=== PATIENT | female | born 1970 | race Caucasian/White ===

== ENCOUNTER 2020-07-08 14:32 | Observation (INO) ==
--- NOTE | 2020-07-08 15:09 | Emergency Department Note ---
Epistaxis HPI <Aravind Pinto PA-C - Last Filed: 07/08/20 22:00> General Chief complaint: Epistaxis Stated complaint: nose bleed Time Seen by Provider: 07/08/20 15:06 Source: patient Mode of arrival: ambulatory Limitations: no limitations History of Present Illness HPI Narrative: Narrative: 50-year-old female presents emergency department with complaints of epistaxis. She was first seen at [facility] in [place]. She has had several bloody noses this week but today it just would not stop. She first had a Rhino Rocket in the left nare which then caused bloody, on the right. Another Rhino Rocket was placed by the physician. At this point the physician in [place] contacted Dr. Kp Thapa who wanted the patient to come to [place] for evaluation. I spoke with him on the phone and he said that if we cannot get it stopped with posterior Johnson then to give him a call. Patient states that she does drink about 6 to 7 days a week of wine. She denies having any other medical conditions. Related Data Home Medications Medication Instructions Recorded Confirmed levothyroxine 112 mcg capsule 112 mcg PO QDAY 02/10/19 07/08/20 Allergies Allergy/AdvReac Type Severity Reaction Status Date / Time Penicillins Allergy Intermediate Palpitation Verified 07/08/20 23:41 s Review of Systems <Aravind Pinto PA-C - Last Filed: 07/08/20 22:00> ROS ROS Narrative: Narrative: PFSH <Aravind Pinto PA-C - Last Filed: 07/08/20 22:00> Narrative Patient History Narrative: Narrative: Medical/Surgical/Family History All Active Problems (Updated 07/08/20 @ 22:00 by Aravind Pinto PA-C) Epistaxis (Acute) Nausea (Acute) Acute cystitis (Acute) Social History Smoking Status: Current every day smoker Alcohol Intake Frequency: a few times a week Substance Use: does not use Exam <Aravind Pinto PA-C - Last Filed: 07/08/20 22:00> Narrative Narrative: Narrative: General Limitations: no limitations Course <Aravind Pinot PA-C - Last Filed: 07/08/20 22:00> Vital Signs Vital signs: Vital Signs Temperature 98.3 F 07/08/20 14:34 Pulse Rate 120 H 07/08/20 14:34 Respiratory Rate 18 07/08/20 14:34 Blood Pressure 118/70 07/08/20 14:34 Pulse Oximetry (%) 100 07/08/20 14:34 Temperature 98.4 F 07/09/20 07:39 Pulse Rate 114 H 07/09/20 07:39 Respiratory Rate 20 07/09/20 07:39 Blood Pressure 119/69 07/09/20 07:39 Pulse Oximetry (%) 97 07/09/20 07:39 <Roberto Carlos Gonsalez MD - Last Filed: 07/09/20 08:05> Vital Signs Vital signs: Vital Signs Temperature 98.3 F 07/08/20 14:34 Pulse Rate 120 H 07/08/20 14:34 Respiratory Rate 18 07/08/20 14:34 Blood Pressure 118/70 07/08/20 14:34 Pulse Oximetry (%) 100 07/08/20 14:34 Temperature 98.4 F 07/09/20 07:39 Pulse Rate 114 H 07/09/20 07:39 Respiratory Rate 07/09/20 07:39 Blood Pressure 119/69 07/09/20 07:39 Pulse Oximetry (%) 97 07/09/20 07:39 Procedures <Aravind Pinto PA-C - Last Filed: 07/08/20 22:00> Epistaxis Control Nostril: left Direct Inspection: unable to visualize Clots Removed by: blowing nose Device Inserted: johnson catheter and other (14 Ivorian Johnson catheter was inserted into the left nare and was visualized at the uvula. 4 cc of sterile normal saline was used to inflate the balloon. It was pulled up to occlude the posterior bleed. 5.5 anterior rhino rocket was placed in left nare. bleeding controlled. patient tolerated well. ) MDM <Aravind Pinto PA-C - Last Filed: 07/08/20 22:00> [facility] Narrative Medical decision making narrative: Narrative: I contacted Dr. Kp Thapa and he said to put a 14 Ivorian in left nare and then a Rhino Rocket in the front for packing to control the bleed. I did this successfully. Patient has been bleeding for the last 6 hours. She is tachycardic and has lost a good amount of blood. [id number] hematocrit was normal but she has not replenished any fluids yet. I have given her 1 L of normal saline along with Zofran for nausea. I feel at this point that I would like to admit the patient for observation to make sure that the posterior pack stays in place as well as her getting hydrated along with a recheck of her H&H. Patient is open to this. I will talk with the hospitalist. Patient continue to bleed despite the posterior and anterior packing. Dr. Thapa was called and he agreed to come evaluate the patient. Upon evaluate the patient Dr. Thapa said that he needed to take the patient to the OR since that she was bleeding enough that he was unable to find a a single source and seem to be coming from multiple sources. Patient was discharged to outpatient surgery. Lab Data Result diagrams: 07/09/20 04:51 07/09/20 04:51 Labs: Lab Results 07/08/20 07/08/20 07/08/20 Range/Units 17:37 22:51 22:51 WBC 6.9 (4.5-11.0) K/mcL RBC 2.65 L (4.00-5.20) M/mcL Hgb 10.0 L (12.0-15.0) g/dL Hct 29.7 L (36.0-48.0) % POC Hct 36 (36-48) % MCV 112.1 H (80.0-100.0) fL MCH 37.7 H (26.0-34.0) pg MCHC 33.7 (31.0-36.0) g/dL RDW 14.1 (11.5-14.5) % Plt Count 108 L (140-440) K/mcL MPV 11.5 H (7.4-10.4) fL Neut % (Auto) 64.3 (38.0-78.0) % Lymph % (Auto) 19.7 (15.0-49.0) % [place] % (Auto) 12.5 H (1.0-12.0) % Eos % (Auto) 2.6 (0.0-7.0) % Baso % (Auto) 0.9 (0.0-2.0) % Lymph # (Auto) 1.36 L (1.50-4.80) K/mcL [place] # (Auto) 0.86 (0.10-0.90) K/mcL Eos # (Auto) 0.18 (0.00-0.70) K/mcL Baso # (Auto) 0.06 (0.00-0.20) K/mcL Absolute Neutrophils 4.44 (1.80-8.00) K/mcL PT 21.6 H (11.9-14.5) sec INR 1.8 H (0.9-1.1) POC Sodium 139 (133-145) mEq/L POC Potassium 4.1 (3.3-5.1) mEql/L POC Chloride 103 (96-108) mEq/L POC Total CO2 26 (22-30) mmol/L POC BUN 10 (6-20) mg/dL POC Creatinine 0.5 L (0.6-1.2) mg/dL POC Glucose 96 (70-105) mg/dL POC WB Ioniz Calcium 1.16 (1.16-1.32) mmEq/L <Roberto Carlos Gonsalez MD - Last Filed: 07/09/20 08:05> Lab Data Labs: Lab Results 07/08/20 07/08/20 07/08/20 Range/Units 17:37 22:51 22:51 WBC 6.9 (4.5-11.0) K/mcL RBC 2.65 L (4.00-5.20) M/mcL Hgb 10.0 L (12.0-15.0) g/dL Hct 29.7 L (36.0-48.0) % POC Hct 36 (36-48) % MCV 112.1 H (80.0-100.0) fL MCH 37.7 H (26.0-34.0) pg MCHC 33.7 (31.0-36.0) g/dL RDW 14.1 (11.5-14.5) % Plt Count 108 L (140-440) K/mcL MPV 11.5 H (7.4-10.4) fL Neut % (Auto) 64.3 (38.0-78.0) % Lymph % (Auto) 19.7 (15.0-49.0) % [place] % (Auto) 12.5 H (1.0-12.0) % Eos % (Auto) 2.6 (0.0-7.0) % Baso % (Auto) 0.9 (0.0-2.0) % Lymph # (Auto) 1.36 L (1.50-4.80) K/mcL [place] # (Auto) 0.86 (0.10-0.90) K/mcL Eos # (Auto) 0.18 (0.00-0.70) K/mcL Baso # (Auto) 0.06 (0.00-0.20) K/mcL Absolute Neutrophils 4.44 (1.80-8.00) K/mcL PT 21.6 H (11.9-14.5) sec INR 1.8 H (0.9-1.1) POC Sodium 139 (133-145) mEq/L POC Potassium 4.1 (3.3-5.1) mEql/L POC Chloride 103 (96-108) mEq/L POC Total CO2 26 (22-30) mmol/L POC BUN 10 (6-20) mg/dL POC Creatinine 0.5 L (0.6-1.2) mg/dL POC Glucose 96 (70-105) mg/dL POC WB Ioniz Calcium 1.16 (1.16-1.32) mmEq/L Discharge Plan Patient/Caregiver Discharge Instructions Pt seen by LOAN ASSOCIATE/PA only: Yes Clinical Impression: Epistaxis Activity: increase activity as tolerated Patient Disposition: Xfer Other Condition: Fair Discharge Date/Time: 07/08/20 21:20 Discharge Comment: in surg [id number]
[2020-07-08 17:53] LABS: POC Blood Urea Nitrogen 10 mg/dL (6-20); POC CO2 26 mmol/L (22-30); POC Calcium, Ionized 1.16 mmEq/L (1.16-1.32); POC Chloride 103 mEq/L (96-108); POC Creatinine 0.5 mg/dL (0.6-1.2); POC Glucose, Random 96 mg/dL (70-105); POC Hematocrit 36 % (36-48); POC Potassium 4.1 mEql/L (3.3-5.1); POC Sodium 139 mEq/L (133-145)
[2020-07-08] MEDS ORDERED: ONDANSETRON 4 MG/2 ML VIAL IV ONE (18:34)
[2020-07-08] MEDS ORDERED: SILVER NITRATE APPLICATOR STICK TOPICAL ONE (20:11)
--- NOTE | 2020-07-08 21:10 | Consultation ---
DATE OF CONSULTATION: 07/08/2020 REASON FOR CONSULTATION: Epistaxis. HISTORY OF PRESENT ILLNESS: The patient is a 50-year-old who was seen earlier in the day at an outlying emergency room with some epistaxis. She has had 4-5 episodes of bleeding this week that have all stopped spontaneously, but she bent over this morning while cleaning and had significant bleeding. She was unable to get it stopped with pressure and went to the outlying ER. There, she was packed bilaterally and monitored. She had continued bleeding and was transferred to the ER at [facility]. The provider here, removed the packing and placed a posterior Cooper pack as well as a small anterior Rhino Rocket. She continued to bleed, both posteriorly and anteriorly. She has no history of any bleeding disorders, but has had 5 days of some nosebleeds. She denies any heavy periods. She does admit to drinking alcohol daily and agrees that she does need to make a change in that habit. Aside from that, she is active and healthy. ALLERGIES: SHE HAS GOT A PENICILLIN ALLERGY and no other drug allergies aside from that. PAST MEDICAL HISTORY: Unremarkable. PAST SURGICAL HISTORY: She had a remote sinus surgery. SOCIAL HISTORY: Smoking, she smokes daily. Alcohol, she drinks daily. Drugs, she denies any illicit drug use. FAMILY HISTORY: Reviewed and no history of any bleeding disorders or early cardiac deaths. REVIEW OF SYSTEMS: Negative in the 12 systems aside from what was mentioned above. PHYSICAL EXAMINATION: From an exam standpoint, she was slightly tachycardic today at 1:22 in the room. Respirations were 20, BP was 130/90s. LABORATORY DATA: Showed a slightly low RBC and hematocrit with an elevated MCV consistent with her alcoholism. Her platelet counts were low at 111. ASSESSMENT AND PLAN: 1. Epistaxis. She has had multiple attempted packings by emergency physicians. I do not have the equipment in the ER to get a good visualization of it. Based on that and her amount of bleeding with her having anemia at 11:30 this morning, I discussed with her going back for some endoscopic control. We did discuss risk factors such as continued bleeding and even . She is going to stay the night observation post-procedure and hopefully we do not have any issues. Aside from that, once packing is placed, we will have her follow up in the upcoming week to remove that and we will monitor her tomorrow to make sure she is safe for discharge. I appreciate the consult. SP:man Job ID: [id number] Doc ID: [id number] Kp Thapa DO
[2020-07-08] MEDS ORDERED: TRANEXAMIC ACID 1,000 MG/10 ML VIAL IV ONE (21:30)
[2020-07-08] MEDS ORDERED: KETAMINE 50 MG/ML ML ONE (21:30)
[2020-07-08] MEDS ORDERED: PROPOFOL 200 MG/20 ML VIAL IV ONE (21:30)
[2020-07-08] MEDS ORDERED: DEXAMETHASONE 10 MG/ML VIAL ONE (21:30)
[2020-07-08] MEDS ORDERED: LIDOCAINE HCL/PF 100 MG/5 ML SYRINGE IV ONE (21:30)
[2020-07-08] MEDS ORDERED: SUCCINYLCHOLINE 20 MG/ML ML IV ONE (21:30)
[2020-07-08] MEDS ORDERED: fentaNYL 100 MCG/2 ML VIAL IV ONE (21:30)
[2020-07-08] MEDS ORDERED: ONDANSETRON 4 MG/2 ML VIAL ONE (21:30)
[2020-07-08] MEDS ORDERED: MIDAZOLAM 5 MG/5 ML VIAL ONE (21:30)
[2020-07-08] MEDS ORDERED: OXYMETAZOLINE 1 SPRAY BOTTLE NAS PRN ×2 (21:40→23:08)
[2020-07-08] MEDS ORDERED: LIDOCAINE W/EPI 1% 20 ML VIAL IJ ONE (21:53)
--- NOTE | 2020-07-08 22:37 | Internal Med History&Physical ---
HPI History of Present Illness Patient information: Note initiated : 07/08/20 at 10:30 pm Service Date, if different from initiated Date: [] Patient: Migdalia Alaniz a 50 y/o F admitted on for nose bleed. Chief Complaint: [] History of present illness: Ms. Alaniz is a 50 year old female with a history of hypothyroidism, alcohol use disorder admitted for persistent epistaxis from posterior bleed after failing multiple attempts at packings by ED providers. She then underwent procedural intervention with ENT in the OR and subsequently admitted for close observation. Constitutional: no fever, fatigue, or weight loss HENT: positive for nose bleed. Cardiovascular: no chest pain, no palpitations Respiratory: no cough or dyspnea Gastrointestinal: no abdominal pain, no nausea, vomiting, or diarrhea Genitourinary: no dysuria or difficulty voiding Musculoskeletal: no arthralgia or myalgia Integumentary: no skin lesion or wound Neurological: no focal weakness or numbness Psychiatric: no anxiety or depression Head: Atraumatic, normal inspection. HENT: dried blood in bilateral nares Neck: full ROM Respiratory: no respiratory distress. Cardiovascular: normal rate and rhythm, S1, S2. GI/Abdominal: soft, nontender, no guarding. Extremities: full range of motion, nontender. Neurological: CN II-XII intact, intact motor, intact sensation. Psychiatric: normal mood. Skin: warm, normal color PFSH PFSH All Active Problems (Updated 07/08/20 @ 22:00 by Aravind Pinto PA-C) Epistaxis (Acute) Nausea (Acute) Acute cystitis (Acute) Social History (Updated 04/12/19 @ 09:51 by Laly Cam DO) alcohol intake frequency: a few times a week substance use type: does not use MEDS/ALLERGIES Home Medications and Allergies Home Medications Medication Instructions Recorded Confirmed Type levothyroxine 112 mcg capsule 112 mcg PO QDAY 02/10/19 07/08/20 History cephalexin 250 mg PO BID 5 Days #10 cap 07/09/20 Rx Allergies Allergy/AdvReac Type Severity Reaction Status Date / Time Penicillins Allergy Intermediate Palpitation Verified 07/08/20 23:41 s EXAM Constitutional Vitals: Temp Pulse Resp BP Pulse Ox 98.3 F 130 H 20 133/88 100 07/08/20 21:15 07/08/20 21:15 07/08/20 21:15 07/08/20 21:15 07/08/20 21:15 DATA Data Completed and Pending Labs: Labs from last 24 hours 07/08/20 17:37 POC Hct 36 POC Sodium 139 POC Potassium 4.1 POC Chloride 103 POC Total CO2 26 POC BUN 10 POC Creatinine 0.5 L POC Glucose 96 POC WB Ioniz Calcium 1.16 A/P Narrative A/P Narrative: Assessment: 50 year old female with a history of hypothyroidism, alcohol use disorder admitted for persistent epistaxis requiring procedural intervention with ENT in the OR./ #Severe epistaxis s/p endoscopic intervention w/ ENT #Acute blood loss anemia #Alcohol used disorder #Hypothyroidism Plan -Monitor for rebleed. -Type and screen. -Follow hemoglobin, transfuse RBC for hgb< 7 or symptomatic anemia. -CIWA protocol -tow driver Time Spent With Patient Time: Total time spent is greater than 50% in coordination of care (as documented) at patient's floor/unit and/or counseling patient:
[2020-07-08] MEDS ORDERED: 0.9 % SODIUM CHLORIDE 250 ML IV SCH (22:45)
[2020-07-08] MEDS ORDERED: IPRATROPIUM/ALBUTEROL 3 ML AMPUL.NEB NEB PRN (23:08)
[2020-07-08] MEDS ORDERED: METOPROLOL TARTRATE 5 MG/5 ML VIAL IV PRN (23:08)
[2020-07-08] MEDS ORDERED: ONDANSETRON 4 MG/2 ML VIAL IV PRN (23:08)
[2020-07-08] MEDS ORDERED: fentaNYL 100 MCG/2 ML VIAL IV PRN (23:08)
[2020-07-08] MEDS ORDERED: diphenhydrAMINE 50 MG/ML VIAL IV PRN (23:08)
[2020-07-08] MEDS ORDERED: ePHEDrine 50 MG/ML AMPUL IV PRN (23:08)
[2020-07-08] MEDS ORDERED: METHOCARBAMOL 1,000 MG/10 ML VIAL IV PRN (23:08)
[2020-07-08] MEDS ORDERED: MEPERIDINE 25 MG/ML VIAL IV PRN (23:08)
[2020-07-08] MEDS ORDERED: ATROPINE SULFATE 0.4 MG/ML VIAL IV PRN (23:08)
[2020-07-08] MEDS: LACTATED RINGERS 1,000 ML IV SCH (23:13)
[2020-07-08 23:53] LABS: Basophils # (Auto) 0.06 K/mcL (0.00-0.20); Basophils % (Auto) 0.9 % (0.0-2.0); Eosinophils # (Auto) 0.18 K/mcL (0.00-0.70); Eosinophils % (Auto) 2.6 % (0.0-7.0); Hematocrit 29.7 % (36.0-48.0); Lymphocytes # (Auto) 1.36 K/mcL (1.50-4.80); Lymphocytes % (Auto) 19.7 % (15.0-49.0); Mean Cell Volume 112.1 fL (80.0-100.0); Mean Corpuscular HGB Conc 33.7 g/dL (31.0-36.0); Mean Platelet Volume 11.5 fL (7.4-10.4); Monocytes # (Auto) 0.86 K/mcL (0.10-0.90); Monocytes % (Auto) 12.5 % (1.0-12.0); Neutrophils % (Auto) 64.3 % (38.0-78.0); Platelet Count 108 K/mcL (140-440); RBC 2.65 M/mcL (4.00-5.20); Red Cell Distribution Width 14.1 % (11.5-14.5); WBC 6.9 K/mcL (4.5-11.0)
[2020-07-08 23:57] LABS: INR 1.8 (0.9-1.1); Prothrombin Time 21.6 sec (11.9-14.5)
[2020-07-09] MEDS ORDERED: ACETAMINOPHEN 325 MG TABLET PO ONE ×2 (01:06→01:25)
[2020-07-09] MEDS ORDERED: ACETAMINOPHEN 325 MG TABLET PO PRN (01:17)
[2020-07-09] MEDS ORDERED: LACTATED RINGERS 1,000 ML IV ONE (01:18)
[2020-07-09] MEDS ORDERED: LACTATED RINGERS 1,000 ML IV SCH (01:30)
[2020-07-09] MEDS: LACTATED RINGERS 1,000 ML IV SCH (02:20)
[2020-07-09] MEDS ORDERED: 0.9 % SODIUM CHLORIDE 10 ML SYRINGE IV SCH (06:00)
[2020-07-09 07:47] LABS: Basophils # (Auto) 0.02 K/mcL (0.00-0.20); Basophils % (Auto) 0.4 % (0.0-2.0); Eosinophils # (Auto) 0 K/mcL (0.00-0.70); Eosinophils % (Auto) 0 % (0.0-7.0); Hematocrit 27.7 % (36.0-48.0); Hemoglobin 9.5 g/dL (12.0-15.0); Lymphocytes # (Auto) 0.56 K/mcL (1.50-4.80); Lymphocytes % (Auto) 10.7 % (15.0-49.0); Mean Cell Volume 109.5 fL (80.0-100.0); Mean Corpuscular HGB Conc 34.3 g/dL (31.0-36.0); Monocytes % (Auto) 1.9 % (1.0-12.0); Platelet Count 99 K/mcL (140-440); RBC 2.53 M/mcL (4.00-5.20); WBC 5.2 K/mcL (4.5-11.0)
[2020-07-09 08:18] LABS: ALT/SGPT 128 U/L (<40); AST/SGOT 264 U/L (<32); Albumin 2.5 gm/dL (3.2-5.2); Albumin/Globulin Ratio 0.5 (1.0-2.3); Alkaline Phosphatase 135 U/L (39-117); Bilirubin,Total 3.6 mg/dL (0.1-1.0); Blood Urea Nitrogen 8 mg/dL (6-20); Calcium 8.1 mg/dL (8.6-10.4); Carbon Dioxide 23 mmol/L (22-30); Chloride 105 mmol/L (96-108); Globulin 4.6 gm/dL (2.2-3.7); Glomerular Filtration Rate 114; Glucose 157 mg/dL (70-105)
--- NOTE | 2020-07-09 08:23 | Discharge Summary ---
Discharge Provider Provider Patient information: Note initiated : 07/09/20 at 8:18 am Service Date, if different from initiated Date: [] Patient: Migdalia Alaniz 50 y/o F admitted on 07/08/20 for nose bleed. Chief Complaint: [] Date of admission: 07/08/20 23:00 Discharge date: 07/09/20 Primary care physician: Amelia Yarbrough Consults: 07/08/20 Consult to Physician [CONS] Stat Comment: Consulting Provider: Chuckie Mendoza Reason For Exam: Physician to Consult Discharge Meds Discharge Medications Home Medications levothyroxine 112 mcg capsule 112 mcg PO QDAY 02/10/19 [History Confirmed 07/08/20 Last Taken 07/08/20 06:30] cephalexin 250 mg PO BID 5 Days #10 cap 07/09/20 [Rx Last Taken Unknown] COURSE Hospital Course Hospital course: Patient admitted for persistent epistaxis, taken to the OR by ENT for endoscopic intervention and packing. Monitored in observation unit and remained stable. Acute blood loss anemia however no requirement for blood transfusion. Discharged on prophylactic Keflex and ENT follow up early next week. Post hospital follow up; -follow up with ENT for left nasal packing removal. HENT: Atraumatic, normal inspection, left nasal packing Eyes: normal appearance, no scleral icterus. Neck: full ROM Respiratory: no respiratory distress. Cardiovascular: normal rate and rhythm, S1, S2. GI/Abdominal: soft, nontender, no guarding. Extremities: full range of motion, nontender. Neurological: CN II-XII intact, intact motor, intact sensation. Psychiatric: normal mood. Skin: warm, normal color Discharge diagnosis: Epistaxis Secondary discharge diagnosis: Alcohol use disorder Hypothyroidism Time Spent with Patient Time attestation: Total time spent providing and/or coordinating discharge services: EXAM Constitutional Vitals: Temp Pulse Resp BP Pulse Ox 98.4 F 114 H 20 119/69 97 07/09/20 07:39 07/09/20 07:39 07/09/20 07:39 07/09/20 07:39 07/09/20 07:39 Discharge Data Data Completed and Pending Labs on day of discharge: Labs from last 24 hours 07/09/20 07/09/20 07/08/20 04:51 04:51 22:51 WBC 5.2 RBC 2.53 L Hgb 9.5 L Hct 27.7 L POC Hct MCV 109.5 H MCH 37.5 H MCHC 34.3 RDW 14.0 Plt Count 99 L MPV 12.0 H Neut % (Auto) 87.0 H Lymph % (Auto) 10.7 L [place] % (Auto) 1.9 Eos % (Auto) 0 Baso % (Auto) 0.4 Lymph # (Auto) 0.56 L [place] # (Auto) 0.10 Eos # (Auto) 0 Baso # (Auto) 0.02 Absolute Neutrophils 4.56 PT 21.6 H INR 1.8 H POC Sodium Sodium Pending POC Potassium Potassium Pending POC Chloride Chloride Pending Carbon Dioxide Pending POC Total CO2 Anion Gap Pending POC BUN BUN Pending Creatinine Pending POC Creatinine GFR Calculation Pending Glucose Pending POC Glucose Calcium Pending POC WB Ioniz Calcium Total Bilirubin Pending AST Pending ALT Pending Alkaline Phosphatase Pending Total Protein Pending Albumin Pending Globulin Pending Albumin/Globulin Ratio Pending 07/08/20 07/08/20 22:51 17:37 WBC 6.9 RBC 2.65 L Hgb 10.0 L Hct 29.7 L POC Hct 36 MCV 112.1 H MCH 37.7 H MCHC 33.7 RDW 14.1 Plt Count 108 L MPV 11.5 H Neut % (Auto) 64.3 Lymph % (Auto) 19.7 [place] % (Auto) 12.5 H Eos % (Auto) 2.6 Baso % (Auto) 0.9 Lymph # (Auto) 1.36 L [place] # (Auto) 0.86 Eos # (Auto) 0.18 Baso # (Auto) 0.06 Absolute Neutrophils 4.44 PT INR POC Sodium 139 Sodium POC Potassium 4.1 Potassium POC Chloride 103 Chloride Carbon Dioxide POC Total CO2 26 Anion Gap POC BUN 10 BUN Creatinine POC Creatinine 0.5 L GFR Calculation Glucose POC Glucose 96 Calcium POC WB Ioniz Calcium 1.16 Total Bilirubin AST ALT Alkaline Phosphatase Total Protein Albumin Globulin Albumin/Globulin Ratio Discharge Plan Patient/Caregiver Discharge Instructions Activity: increase activity as tolerated Prescriptions: New cephalexin 250 mg Capsule 250 mg PO BID 5 Days Qty: 10 RF: 0 Continued levothyroxine 112 mcg capsule 112 mcg PO QDAY RF: 0 Follow Up Plan Follow up with: Amelia Yarbrough ARNP [Primary Care Provider] - Kp Thapa DO [Physician] - 07/20/20 Patient Disposition: Home, Self-Care Prognosis: Fair Rehab Potential: Fair Overall status at discharge: patient is progressing back to baseline Discharge Orders: Discharge Order (Routine); Ordered 07/09/20 Ordered By: Chuckie Mendoza QUALITY VTE Deep Vein Thrombosis/Pulmonary Embolism Present on Admission: No
[2020-07-09] MEDS ORDERED: CEPHALEXIN 250 MG CAPSULE PO SCH (09:00)
[2020-07-09] MEDS ORDERED: DOCUSATE SODIUM 100 MG CAPSULE PO SCH (09:00)
[2020-07-09] MEDS ORDERED: NICOTINE 14 MG PATCH TOPICAL SCH (10:00)
[2020-07-09] MEDS ORDERED: SENNOSIDES 1 TABLET PO SCH (21:00)
--- NOTE | 2020-07-26 08:21 | Operative Note ---
DATE OF OPERATION: 07/08/2020 PREOPERATIVE DIAGNOSES: 1. Left epistaxis. 2. Acute blood loss anemia. POSTOPERATIVE DIAGNOSES: 1. Left epistaxis. 2. Acute blood loss anemia. PROCEDURE: Endoscopic transethmoid sphenopalatine artery ligation. SURGEON: Kp Thapa D.O. SANITARIAN: None. ANESTHESIA: General. ANESTHESIOLOGIST: Leslie Childress CRNA COMPLICATIONS: None. ESTIMATED BLOOD LOSS: 50 mL. FINDINGS: The patient had a significant bleed posterior that was located just at the posterior aspect of the middle turbinate. She had otherwise healthy turbinates. However, she had some low platelets, which was likely due to her alcoholism. SPECIMENS: None. CONDITION: She tolerated the procedure well and was transferred to PACU in stable condition. DESCRIPTION OF PROCEDURE: After informed consent was obtained, the patient was brought to the operating room and laid supine on the operating table. General endotracheal anesthesia was administered by a member of the anesthesia team. Once appropriate level was reached, the patient was prepped and draped for the procedure. Initially, the packing was removed out of the patient's left nasal cavity, and the nasal cavity was irrigated and suctioned out. There was brisk bleeding posterior. It was packed with some pledgets saturated in some cocaine that was 4%. After several minutes, this bleeding did slow down to some degree. At that point, I was able to medialize the middle turbinate and elevate the mucosa posterior to that maxillary antrostomy. I did enter the anterior ethmoid on that side for visualization. Once that mucosa was elevated backwards, I was able to identify the vascular structures. At that point, I used some suction cautery in the area to ligate that sphenopalatine artery. Once that was done, I placed a small portion of some Merocel packing over that area. I then did place an 8 cm Merocel pack inferiorly as well. The nose was irrigated out and there was no evidence of any bleeding. She was admitted overnight with no major issues. Packs will be taken out in approximately 5 days within the office. She is on some postoperative antibiotics as well and will have some consultations for her new onset anemia. SP:[email or web address] Job ID: [id number] Doc ID: [id number] Kp Thapa DO
== END 2020-07-09 11:05 | disposition home or self-care (01) ==
LOC: ED 14:32 → SUR 21:19 → MEDSUR 21:19 → SUR 21:20
PROVIDERS: ADMIT Internal Medicine; ATTEND Internal Medicine